=== PATIENT | female | born 2000 | race Two or more races ===

== ENCOUNTER 2023-11-25 21:38 | Emergency (ER) | payer OTHER ==
[~2023-11-25] VITALS: Ht 152.4 cm; Wt 60.3 kg
[2023-11-25 21:57] VITALS: BP 121/77; PULSE 81; RESP 16; TEMP 98.1; O2SAT 97
[2023-11-25 23:49] LABS: Urine Bacteria FEW /hpf (None Seen); Urine Blood 2+ /uL (Negative); Urine Clarity Turbid (Clear); Urine Color Light-Yellow (Yellow); Urine Mucus FEW (None Seen); Urine Protein, UAD TRACE (Negative); Urine Specific Gravity 1.024 (1.001-1.035); Urine Urobilinogen Normal (Negative); Urine WBC 121 /hpf (0 - 5); Urine pH 5.5 (5.0-9.0)
[2023-11-26] MEDS ORDERED: BACDST PO (00:01)
[2023-11-26] MEDS ORDERED: IBUP-1456 PO (00:01)
[2023-11-26] MEDS: cefTRIAXone SOD 1,000 MG VL IM ONE (01:39)
== END 2023-11-26 01:46 | disposition home or self-care (01) ==
LOC: ER 21:38
DX: N39.0 Urinary tract infection, site not specified (principal); Z32.02 Encounter for pregnancy test, result negative
CPT/HCPCS: 81001; 81025; 96372; 99283; J0696

== ENCOUNTER 2024-04-14 00:33 | Emergency (ER) | payer OTHER ==
[~2024-04-14] VITALS: Ht 152.4 cm; Wt 61.3 kg
[~2024-04-14 00:33] MED LIST: BACDST PO; IBUP-1456 PO
[2024-04-14 01:25] VITALS: BP 137/98; RESP 16; TEMP 98.3; O2SAT 95
[2024-04-14 01:32] VITALS: PULSE 72
--- NOTE | 2024-04-14 01:32 | ED.PDOC ---
SOB-HPI HPI Comments 24 YEAR OLD FEMALE PRESENTS TO ER WITH COMPLAINTS OF FLU-LIKE SYMPTOMS X 2 DAYS. PATIENT REPORTS SHE HAS BEEN EXPERIENCING A DRY COUGH, CONGESTION AND SHORTNESS OF BREATH X 2 DAYS WITH ASSOCIATED 2/10 SUBSTERNAL CHEST PAIN THAT SHE STATES IS PRESENT UPON DEEP INSPIRATION ONLY X 1 DAY. DENIES USE OF MEDICATIONS FOR CURRENT SYMPTOMS. PATIENT PRESENTS TO ER AMBULATORY ON ARRIVAL, WITH STEADY GAIT, IN NO DISTRESS WITH VITALS STABLE. DENIES FEVER, BODY ACHES, CHILLS, N/V, HEMOPTYSIS, KNOWN EXPOSURE TO SICK CONTACTS OR ANY FURTHER SYMPTOMS/COMPLAINTS Chief Complaint: Chest Pain Time Seen by MD: 00:39 Primary Care Provider: UNKNOWN Reviewed notes: Nurses Notes, Medications, Allergies Information Source: Patient Mode of Arrival: Ambulatory Past Medical History PAST MEDICAL HISTORY: Denies Surgical History: Denies all surgeries Family History Family History: Unknown Social History Smoker: Non-Smoker Alcohol: Denies ETOH Use Drugs: Denies Drug Use Lives In: Home Constitutional: denies: chills, diaphoresis, fatigue, fever, malaise, sweats, weakness, others EENTM: reports: others ( STATED IN HPI) Respiratory: reports: others ( STATED IN HPI) Cardiovascular: reports: others ( STATED IN HPI) Gastrointestinal: denies: abdomen distended, abdominal pain, blood streaked bowels, constipated, diarrhea, dysphagia, difficulty swallowing, hematemesis, melena, nausea, poor appetite, poor fluid intake, rectal bleeding, rectal pain, vomiting, others Genitourinary: denies: abnormal vagina bleeding, burning, dyspareunia, dysuria, flank pain, frequency, hematuria, incontinence, pain, , vagina discharge, urgency, others Neurological: denies: dizziness, fainting, headache, left sided numbness, left sided weakness, numbness, paresthesia, pre-existing deficit, right sided numbness, right sided weakness, seizure, speech problems, tingling, tremors, weakness, others Musculoskeletal: denies: back pain, gout, joint pain, joint swelling, muscle pain, muscle stiffness, neck pain, others Integumetry: denies: bruises, change in color, change in hair/nails, dryness, laceration, lesions, lumps, rash, wounds, others Allergic/Immunocompromised: denies: Difficulty Healing, Frequent Infections, Hives, Itching, others Hematologic/Lymphatic: denies: anemia, blood clots, easy bleeding, easy bruising, swollen glands, others Endocrine: denies: excessive hunger, excessive sweating, excessive thirst, excessive urination, flushing, intolerance to cold, intolerance to heat, unexplained weight gain, unexplained weight loss, others Psychiatric: denies: anxiety, bipolar disorder, depression, hopeless, panic disorder, schizophrenia, sleepless, suicidal, others Physical Exam General Appearance: No Apparent Distress HEENT: Normal ENT Inspection, PERRL/EOMI, Pharynx Normal, TMs Normal Neck: Full Range of Motion, Non-Tender, Normal Respiratory: Chest Non-Tender, Lungs Clear, No Accessory Muscle Use, No Respiratory Distress, Normal Breath Sounds Cardiovascular: No Murmur, No Gallop, Regular Rate/Rhythm Breast Exam: Deferred Gastrointestinal: NOT DONE Genitalia: Deferred Pelvic: Deferred Rectal: Deferred Extremities: No calf tenderness, Normal capillary refill, Normal range of motion Neurologic: Alert, No Motor Deficits, Normal Affect, Normal Mood, No Sensory Deficits Cerebellar Function: Normal Reflexes: Normal Skin: Dry, Normal Color, Warm Peripheral Pulses: 2+ Radial (R), 2+ Radial (L), 2+ Brachial (R), 2+ Brachial (L) Lymphatic: No Adenopathy EKG EKG : Pulse Rate (adult): 72 Cardiac Rhythm: NSR (SR) Block: None Hypertrophy: None ST: Normal Was a procedure done? Was a procedure done?: No Sedation Sedation?: No Differential Dx Differential Diagnosis: Myocardial infarction, Pneumonia, Pneumothorax, Pulmonary Embolism, Respiratory Distress X-Ray, Labs, Meds, VS Vital Signs Date Time Temp Pulse Resp B/P (MAP) Pulse Ox O2 Delivery O2 Flow Rate FiO2 04/14/24 01:32 72 04/14/24 01:25 69 16 95 Room Air 04/14/24 01:25 98.3 69 16 137/98 (111) 95 98.3 04/14/24 00:55 98.3 69 16 137/98 (111) 95 04/14/24 00:46 72 Lab Test 04/14/24 00:50 04/14/24 00:41 Range/Units Influenza Type A Antigen Negative Negative Influenza Type B Antigen Negative Negative SARS-CoV-2 Antigen (Rapid) Negative NEGATIVE Troponin I High Sensitivity < 3 L </=34 ng/L PATIENT: WESLY DENNIS: [id number]: [id number] : 2000 LOC: ER ROOM / BED: / AGE / SEX: 24 / F ADM STATUS: REG ER SERVICE 0 ORDERING PHYSICIAN: LEANDRA ESCOBEDO PROCEDURE(s): CXR1 - CHEST XRAY 1 VIEW REASON: COUGH ORDER NUMBER(s): [id number], ACCESSION NUMBER(s): [id number] CHEST RADIOGRAPH Indication: COUGH Technique: Single frontal view of the chest was obtained COMPARISON: None FINDINGS: Lines and Tubes: None Lungs: Clear Pleura: No effusion. No pneumothorax. Cardiomediastinal contours: Unremarkable Bones: Unremarkable IMPRESSION: No abnormality. ATED BY: ARAMIS GUERRERO MD DICTATED DATE/TIME: 04/14/24132 SIGNED BY: ARAMIS GUERRERO MD SIGNED DATE/TIME: 04/14/24132 CC: WAIVER - SIGNED TROPONIN REVIEWED-NORMAL EKG REVIEWED CHEST X-RAY REVIEWED PREVIOUS CHART VISIT REVIEWED PATIENT HAD IMPROVEMENT IN SYMPTOMS AND DENIED ANY CHEST PAIN PRIOR TO DISCHARGE ADVISED TO DRINK PLENTY OF FLUIDS ADVISED TO FOLLOW UP WITH PCP IN 1-2 DAYS PATIENT VERBALIZED UNDERSTANDING AND AGREEABLE WITH CURRENT PLAN OF CARE ADVISED TO RETURN TO ER IMMEDIATELY IF SYMPTOMS WORSEN Time of 1ST Reevaluation: 01:22 Reevaluation 1ST: N/A Time of 2ND Reevaluation: 02:30 Reevaluation 2ND: Improved Patient Education/Counseling: Diagnosis, Treatment, Prognosis, Need For Follow Up Family Education/Counseling: No Family Present Departure 1 Departure Time of Disposition: 02:32 Impression: Primary Impression: Viral URI Additional Impression: Bronchospasm Disposition: 01 HOME / SELF CARE / HOMELESS Condition: Stable e-Prescriptions Albuterol Sulfate (VENTOLIN MDI) 90 Mcg Ih 2 PUFF IN Q4HPRN, #1 INH 0 Refills Prov: LEANDRA ESCOBEDO 04/14/24 Prednisone (Prednisone) 20 Mg Tab 20 MG PO BID for 5 Days, #10 TAB 0 Refills Prov: LEANDRA ESCOBEDO 04/14/24 Acetaminophen (Acetaminophen) 500 Mg Tab 500 MG PO Q4HPRN, #30 TAB 0 Refills Prov: LEANDRA ESCOBEDO 04/14/24 Discharged With: Self Critical Care Note Critical Care Time?: No Stability Stability form required: No Heart Score Heart Score: Heart Score Response (Comments) Value History Slightly Suspicious 0 EKG Normal 0 Age <45 0 Risk Factors N/A 0 Troponin Normal limit 0 Total 0 LEANDRA ESCOBEDO Apr 14, 2024 01:32
--- NOTE | 2024-04-14 01:36 | DVH ---
CHEST RADIOGRAPH Indication: COUGH Technique: Single frontal view of the chest was obtained COMPARISON: None FINDINGS: Lines and Tubes: None Lungs: Clear Pleura: No effusion. No pneumothorax. Cardiomediastinal contours: Unremarkable Bones: Unremarkable IMPRESSION: No abnormality.
[2024-04-14 02:23] LABS: Rapid Influenza A Negative (Negative); Rapid Influenza B Negative (Negative)
[2024-04-14 02:24] LABS: COVID19 ANTIGEN SOFIA FIA NEGATIVE (NEGATIVE)
[2024-04-14] MEDS ORDERED: PRED20TA2 PO (02:34)
[2024-04-14] MEDS ORDERED: ACET500T58 PO (02:34)
[2024-04-14] MEDS ORDERED: ALBUAER3 IN (02:34)
--- NOTE | 2024-04-14 07:29 | ECG ---
[facility] Test Date: 2024-04-14 Test Time: 00:43:50 Pat Name: JODY DENNIS Department: ER Room: Gender: F [employer] Technician: JSOE : 2000 Requested By: LEANDRA ESCOBEDO Order Number: [id number] Reading MD: Abel Faria Measurements Intervals [place] Rate: P: 0 NC: 0 QRS: 0 QRSD: 0 T: 0 QT: 0 QTc: 0 Interpretive Statements All 12 leads are missing Electronically Signed On 04-16-2024 17:43:46 PST by Abel Faria Please click the below link to view image of tracing.
--- NOTE | 2024-04-14 12:22 | ECG ---
Test Date: 2024-04-14 Test Time: 00:46:07 Pat Name: JODY DENNIS Department: ER Room: Gender: F Tuck Pointer: JOSE : 2000 Requested By: LEANDRA ESCOBEDO Order Number: [id number] Reading MD: Abel Faria Measurements Intervals [place] Rate: 72 P: 0 MT: 127 QRS: 59 QRSD: 88 T: 35 QT: 366 QTc: 401 Interpretive Statements Sinus rhythm Low voltage, precordial leads Electronically Signed On 04-16-2024 17:43:48 PST by Abel Faria Please click the below link to view image of tracing.
== END 2024-04-14 02:44 | disposition home or self-care (01) ==
LOC: ER 00:33
DX: J06.9 Acute upper respiratory infection, unspecified (principal); J98.01 Acute bronchospasm; B97.89 Other viral agents as the cause of diseases classified elsewhere; R07.89 Other chest pain; Z20.822 Contact with and (suspected) exposure to COVID-19
CPT/HCPCS: 36415; 71045; 84484; 87426; 87804; 93005